=== PATIENT | male | born 1945 | race Caucasian/White ===

== ENCOUNTER → 2016-09-24 | Outpatient (CLI) | payer OTHER, BC ==
[~2016-09-24] MED LIST: ALEVE220 M1 PO; ANDRODERM5 MG TD; ASPIRIN E.C.81 M1 PO; Flonase BOTH NARES; Ginkgo Biloba PO; Glucophage PO; Hydrodiuril,Oretic,E PO; IMITREX25 MG PO; LASIX40 MG PO; NEXIUM40 MG PO; Norvasc PO; RHINOCORT AQUA8.6 G1 NS; SECTRAL200 M1 PO; SUDAFED PO; THEO-DUR,THEOC200 MG PO; TYLENOL PM1 CAPLET PO; Tears Naturale II,Ar BOTH EYES; XYZAL5 MG PO; Xanax PO
== END | disposition home or self-care (01) ==
LOC: NUC 10:52
DX: N13.30 Unspecified hydronephrosis (principal)
CPT/HCPCS: 78709; A9562